=== PATIENT | female | born 1965 | race Caucasian/White ===

== ENCOUNTER → 2018-01-08 20:04 | Outpatient (CLI) | payer OTHER, SELFPAY ==
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
== END ==
PROVIDERS: PCP Nurse Practitioner Family; Visit Provider Nurse Practitioner Family
DX: M54.05 Panniculitis affecting regions of neck and back, thoracolumbar region (principal)
CPT/HCPCS: 72072; 72100

== ENCOUNTER → 2019-01-24 17:47 | Outpatient (CLI) | payer OTHER, SELFPAY | PROVIDERS: Visit Provider Podiatrist | DX: E11.8 Type 2 diabetes mellitus with unspecified complications (principal); B35.1 Tinea unguium | CPT/HCPCS: 87220 ==

== ENCOUNTER → 2019-09-26 10:28 | Outpatient (CLI) | payer OTHER, SELFPAY ==
--- NOTE | 2019-09-26 14:35 | MM_ITS ---
PROCEDURE: MM DIG SCREENING MAMM BI W/CAD DIGITAL BREAST TOMOSYNTHESIS INCLUDED Patient Age:54Y CLINICAL INDICATION: SCREENING the No hormones, no new complaints. Noncontributory family history. COMPARISON: MM MOBILE MAMMO DIGITAL SCREEN W CAD SAAD from 03/11/2017 mobile unit from [facility]; however appear to be a corrupted file on the submitted digital images particular in the left breast thus images do not load appropriately. Left breast extremely distorted and of very limited value for comparison TECHNIQUE: Standard CC and MLO images were obtained. R2 CAD reviewed. Bilateral digital breast tomosynthesis included. FINDINGS: minimal residual fibroglandular elements with moderate fatty replacement bilaterally. Right breast: Stable. No new areas of significant concern.. Follow-up 1 year Areas of minimal density seen today were evident on prior studies . For example area of overlapping fibroglandular elements at 12 o'clock of with similar area on previous study.. Left breast: Unfortunately the submitted outside left breast images appears to be more corrupted file. Thus the outside left mammogram images are quite distorted and of little value for comparison.. However we see no prominent or suspicious areas of concern left breast. Follow-up 1 year adequate Bilateral follow-up 1 year recommended and would be encouraged to better establish in confirm baseline since prior studies provide distorted/limited comparison. Thank you IMPRESSION: No suspicious findings No new areas of significant concern either breast Bilateral follow-up 1 year recommended-and would be encouraged, emphasized such to better confirm baseline/and stability (Note: Unfortunately outside digital images submitted for comparison have corrupted file and thus limited usefulness for comparison particularly at more distorted prior left breast images) BI-RAD Category: 2 Benign Finding(s) FOLLOW-UP: 1YR 1 Year Follow-up (A letter has been sent to the patient regarding results of the study.) Dictated by: Ever Pierce MD 10/15/2019 15:11 Electronically signed by Ever Peirce MD in [place] 10/15/2019 15:11
== END ==
PROVIDERS: PCP Nurse Practitioner Family; Visit Provider Nurse Practitioner Family
DX: M17.12 Unilateral primary osteoarthritis, left knee (principal)
CPT/HCPCS: 77063; 77067

== ENCOUNTER 2021-03-28 17:50 | Emergency (ER) | payer OTHER, SELFPAY ==
[2021-03-28 17:51] VITALS: BP 127/81; PULSE 103; RESP 16; TEMP 36.6; O2SAT 97; BMI 31.1
--- NOTE | 2021-03-28 18:08 | CT_ITS ---
PROCEDURE INFORMATION: Exam: CT Head Without Contrast Exam date and time: 03/28/2021 6:08 PM Age: 55 years old Clinical indication: Injury or trauma; Fall; Bleeding/hemorrhage and blunt trauma (contusions or hematomas); Consciousness not specified; Additional info: Fall head injury TECHNIQUE: Imaging protocol: Computed tomography of the head without contrast. Radiation optimization: All CT scans at this facility use at least one of these dose optimization techniques: automated exposure control; mA and/or kV adjustment per patient size (includes targeted exams where dose is matched to clinical indication); or iterative reconstruction. COMPARISON: No relevant prior studies available. FINDINGS: Brain: Normal. No hemorrhage. Unremarkable white matter. No mass effect. Cerebral ventricles: No ventriculomegaly. Paranasal sinuses: Visualized sinuses are unremarkable. No fluid levels. Mastoid air cells: Visualized mastoid air cells are well aerated. Bones/joints: Mildly comminuted nasal fracture. Please see concurrent CT face for other findings related to the bones. Soft tissues: Small left frontal scalp hematoma. IMPRESSION: No acute intracranial pathology
--- NOTE | 2021-03-28 18:09 | CT_ITS ---
PROCEDURE INFORMATION: Exam: CT Cervical Spine Without Contrast Exam date and time: 03/28/2021 6:09 PM Age: 55 years old Clinical indication: Injury or trauma; Fall; Blunt trauma TECHNIQUE: Imaging protocol: Computed tomography images of the cervical spine without contrast. Radiation optimization: All CT scans at this facility use at least one of these dose optimization techniques: automated exposure control; mA and/or kV adjustment per patient size (includes targeted exams where dose is matched to clinical indication); or iterative reconstruction. COMPARISON: CT FACIAL BONES WO CON 03/28/2021 6:44 PM FINDINGS: Bones/joints: No acute fracture. Normal alignment. Discs/Spinal canal/Neural foramina: Mild multilevel degenerative changes. No severe spinal canal stenosis. Lungs: Lung apices are normal. Soft tissues: Please see concurrent CT face for findings in the face. IMPRESSION: No evidence of C-spine fracture
--- NOTE | 2021-03-28 18:09 | CT_ITS ---
PROCEDURE INFORMATION: Exam: CT Maxillofacial Without Contrast Exam date and time: 03/28/2021 6:09 PM Age: 55 years old Clinical indication: Injury or trauma; Fall; Blunt trauma (contusions or hematomas); Nose; Additional info: Fall facial injury TECHNIQUE: Imaging protocol: Computed tomography images of the face without contrast. Radiation optimization: All CT scans at this facility use at least one of these dose optimization techniques: automated exposure control; mA and/or kV adjustment per patient size (includes targeted exams where dose is matched to clinical indication); or iterative reconstruction. COMPARISON: CT HEAD/BRAIN WO CON 03/28/2021 6:41 PM FINDINGS: Orbital cavity: Orbits are normal. Globes are unremarkable. Bones/joints: Approximately 8 mm of rightward deviation of the nasal septum is seen. This is favored to be chronic. There is a mildly comminuted and mildly displaced nasal fracture with overall leftward deviation. Paranasal sinuses: Normal. No air-fluid levels. Soft tissues: Soft tissue trauma seen in the left frontal lobe and over the nose. Dental: Dental caries noted. Some periapical lucencies seen as well. IMPRESSION: Nasal fracture as above
--- NOTE | 2021-03-28 19:16 | HMH.EDGENADL ---
ED Disposition Clinical Impression: Nasal fracture Qualifiers: Encounter type: initial encounter Fracture type: closed Qualified Code(s): S02.2XXA - Fracture of nasal bones, initial encounter for closed fracture Nasal abrasion Qualifiers: Encounter type: initial encounter Qualified Code(s): S00.31XA - Abrasion of nose, initial encounter Nasal laceration Qualifiers: Encounter type: initial encounter Qualified Code(s): S01.21XA - Laceration without foreign body of nose, initial encounter Disposition: Home, Self-Care Condition on Discharge: Fair Instructions: DI for Nose Fracture, DI for Laceration Repair-Skin Glue, DI for Abrasion Additional Instructions: Ice 20 minutes 4-5 times a day to nose. Keep head elevated on several pillows at night for 3 days. Tylenol 3/[place] as needed for pain. Follow-up with ears nose and throat, Dr. Kelly, call tomorrow to make appointment. Prescriptions: Hydrocod/Acet 5/325 mg [[place] 5/325mg tablet] 1 tab PO Q6HP PRN #10 tab PRN Reason: Pain Transmission Status: Sent to [facility] Referrals: Radha Medina [Primary Care Provider] - Roger Kelly MD [Physician] - (ENT) - Critical Care Critical Care Time: No Attestation: On 03/28/21, the high probability of a clinically significant, sudden or life threatening deterioration of the following system(s) required my full and direct attention, intervention and personal management. The time I documented below is in addition to time spent performing reported procedures but includes the following listed in this critical care notation. Medical Decision Making - Junior Inquiry Pt receiving controlled substance: Yes Junior was queried for this patient: Yes Risks and benefits of using a controlled substance: were discussed with pt by me Vital Signs: 03/28/21 17:51 03/28/21 20:15 Temperature 98 F 97 F L Temperature Source Oral Oral Pulse Rate 88 Pulse Rate [Radial] 103 H Respiratory Rate 16 16 Blood Pressure 127/81 Blood Pressure [Right Arm] 127/81 Blood Pressure Mean [Right Arm] 96 Blood Pressure Position [Right Arm] Sitting 02 Sat by Pulse Oximetry 97 Oxygen Delivery Method Room Air Room Air Orders (Tests/Meds): ED MEDICATIONS Discontinued Medications Generic Name Dose Route Start Last Admin Trade Name Freq PRN Reason Stop Dose Admin Acetaminophen/Codeine Phosphate 1 mohinder 03/28/21 19:50 03/28/21 20:00 Acetaminophen 300mg W/Codeine 30mg Take Home Pack (6) PO 03/28/21 19:51 1 mohinder ONCE ONE Administration Tetanus/Reduced Diphtheria/Acell Pertussis 0.5 ml 03/28/21 19:55 03/28/21 20:00 Tet/Diphth/Pert-Adult 0.5ml Syringe IM 03/28/21 19:56 0.5 ml .ONCE ONE Administration - CT Data CT Scan: Head, C-Spine, Other (facial) Time Received: 19:[address] Reviewed: Yes: I have viewed the radiologist's interpretation Findings Narrative: PROCEDURE INFORMATION: Exam: CT Cervical Spine Without Contrast Exam date and time: 03/28/2021 6:09 PM Age: 55 years old Clinical indication: Injury or trauma; Fall; Blunt trauma TECHNIQUE: Imaging protocol: Computed tomography images of the cervical spine without contrast. Radiation optimization: All CT scans at this facility use at least one of these dose optimization techniques: automated exposure control; mA and/or kV adjustment per patient size (includes targeted exams where dose is matched to clinical indication); or iterative reconstruction. COMPARISON: CT FACIAL BONES WO CON 03/28/2021 6:44 PM FINDINGS: Bones/joints: No acute fracture. Normal alignment. Discs/Spinal canal/Neural foramina: Mild multilevel degenerative changes. No severe spinal canal stenosis. Lungs: Lung apices are normal. Soft tissues: Please see concurrent CT face for findings in the face. IMPRESSION: No evidence of C-spine fracture EDURE INFOR
[2021-03-28 20:15] VITALS: BP 127/81; PULSE 88; RESP 16; TEMP 36.1; O2SAT 98
== END 2021-03-28 20:15 | disposition home or self-care (01) ==
PROVIDERS: Emergency Provider Emergency Medicine; PCP Nurse Practitioner Family
DX: S02.2XXA Fracture of nasal bones, initial encounter for closed fracture (principal); S00.31XA Abrasion of nose, initial encounter; S01.21XA Laceration without foreign body of nose, initial encounter; Z23 Encounter for immunization; W18.00XA Striking against unspecified object with subsequent fall, initial encounter; Y92.019 Unspecified place in single-family (private) house as the place of occurrence of the external cause; I10 Essential (primary) hypertension; E11.9 Type 2 diabetes mellitus without complications; F17.210 Nicotine dependence, cigarettes, uncomplicated
CPT/HCPCS: 70450; 70486; 72125; 90715; 99282

== ENCOUNTER 2023-11-28 14:16 | Outpatient (CLI) | payer OTHER, SELFPAY ==
--- NOTE | 2023-11-28 14:19 | CT_ITS ---
FINAL REPORT TECHNIQUE: Thin section axial images were obtained from the lung apices to the upper abdomen by computed tomography. Reformatted images were obtained and reviewed. This study was performed with techniques to keep radiation doses al low as reasonably achievable (ALARA). Individualized dose reduction techniques using automated exposure control or adjustment of mA and/or kV according to the patient's size were employed. CLINICAL HISTORY: SCREENING 1.5 ppd x15 years COMPARISON: None FINDINGS: CHEST CT LOW DOSE: 58-year-old female, current smoker, 40-dukw-cqqs history. CTDI vol (mGy): 2.9 DLP (mGy-cm): 96.38 There is no axillary adenopathy. There is no mediastinal or hilar mass or adenopathy. The heart is normal in size. There is no pericardial or pleural effusion. There is mild scarring in the lung bases. Lung window images demonstrate a 6 mm nodule in the left upper lobe, best seen on image #42 of series 4.. Limited images of the upper abdomen are unremarkable. IMPRESSION: Lung-RADS category 3. Recommend 6 month follow up low dose chest CT. Reviewed, Interpreted and Dictated by Geoffrey Sanchez MD Transcribed by Olga Lopez Authenticated and [facility]
== END 2023-11-28 23:59 | disposition home or self-care (01) ==
LOC: RAD 14:16
PROVIDERS: PCP Nurse Practitioner Family; Visit Provider Nurse Practitioner Family
DX: Z12.2 Encounter for screening for malignant neoplasm of respiratory organs (principal)
CPT/HCPCS: 71271

== ENCOUNTER 2024-06-03 13:15 | Outpatient (CLI) | payer OTHER, SELFPAY ==
--- NOTE | 2024-06-03 13:23 | CT_ITS ---
FINAL REPORT TECHNIQUE: Thin section axial images were obtained from the lung apices through the upper abdomen without contrast. Coronal and sagittal reconstructed images were obtained and reviewed. This study was performed with techniques to keep radiation doses as low as reasonably achievable (ALARA). Individualized dose reduction techniques using automated exposure control or adjustment of mA and/or kV according to the patient's size were employed. CLINICAL HISTORY: SOLITARY PULMONARY NODULE COMPARISON: 11/28/2023 FINDINGS: CT CHEST WITHOUT CONTRAST There is an oval groundglass nodule in the left upper lobe measuring 6 x 4 mm seen on image 45 of series 2. There is mild dependent atelectasis. There is a 2 mm peripheral nodule in the right middle lung seen on image 48 of series 2, which is stable. No pleural or pericardial effusion is seen . No adenopathy or mass lesion is present . IMPRESSION: Stable lung nodules, favor benign. Given the interval stability, recommend resumption of low-dose CT screening in 6 months. Reviewed, Interpreted and Dictated by Leticia Chow MD Transcribed by Rani Wharton Authenticated and [facility]
== END 2024-06-03 23:59 | disposition home or self-care (01) ==
LOC: RAD 13:16
PROVIDERS: PCP Nurse Practitioner Family; Visit Provider Nurse Practitioner Family
DX: R91.1 Solitary pulmonary nodule (principal)
CPT/HCPCS: 71250

== ENCOUNTER 2025-01-07 09:36 | Outpatient (CLI) | payer OTHER, SELFPAY ==
[2025-01-07 20:26] LABS: Hematocrit 44.4 % (37.0-47.0); Hemoglobin 14.8 g/dL (12.2-16.2); Immature Granulocytes % 0.6 %; Mean Corpuscular HGB Conc 33.3 g/dL (31.8-35.4); Mean Corpuscular Hemoglobin 29.5 pg (27.0-31.2); Mean Corpuscular Volume 88.6 fl (81-99); Nucleated Red Blood Cells % 0 %; Platelet Count 356 K/mm3 (142-424); Red Blood Count 5.01 M/mm3 (4.20-5.40); Red Cell Distribution Width-SD 42.0 fL; White Blood Count 5.4 K/mm3 (4.8-10.8)
[2025-01-07 20:57] LABS: Albumin Level 4.5 g/dl (3.5-5.0); Chloride 97 mmol/L (98-107); Potassium 4.8 mmoL/L (3.5-5.1); Sodium 138 mmol/L (136-145)
[2025-01-07 21:00] LABS: Alanine Aminotransferase 43 U/L (12-78); Albumin/Globulin Ratio 1.4 (1.1-1.8); Alkaline Phosphatase 75 U/L (38-126); Anion Gap 17.8 mEq/L (5-15); Aspartate Amino Transferase 38 U/L (14-36); Bilirubin,Total 1.0 mg/dl (0.2-1.3); Calcium 10.2 mg/dl (8.4-10.2); Carbon Dioxide 28 mmol/L (22.0-30.0); Cholesterol 205 mg/dl (140-200); Globulin 3.3 g/dL (1.3-3.2); Glucose 148 mg/dl (74-100); HDL Cholesterol 44 mg/dl (40-60); Total Protein,Serum 7.8 g/dl (6.3-8.2); Triglycerides 143 mg/dl (30-150)
[2025-01-07 21:20] LABS: Blood Urea Nitrogen 16 mg/dl (7-17); Creatinine,Serum 0.60 mg/dl (0.52-1.04); Estimated Glomerular Filt Rate 103 ml/min (>60); GFR (African American) 124 ML/MIN (>60)
[2025-01-07 21:30] LABS: Thyroid Stimulating Hormone 1.90 uIU/mL (0.465-4.68)
[2025-01-07 21:47] LABS: Hepatitis C Ab Qual. W/ RFX NEGATIVE (Negative)
[2025-01-07 22:30] LABS: Hemoglobin A1C 7.2 % (4.0-6.0)
--- OUTSIDE RECORDS SUMMARY | 2025-01-08 08:52 | XMS_ITS | Clinical Summary ---
Author Organization [facility] Address [address] [place] [address] Phone Care Team Providers Care Kaiawhina Kohanga Reo Name Role Phone Unavailable Primary Care Provider Unavailabl e Social History Tobacco Use Types Packs/Day Years Used Date Smoking Tobacco: Never Assessed Comments No Sex and Gender Information Value Date Recorded Sex Assigned at Not on file Legal Sex Female 9:07 AM EST Gender Identity Not on file Sexual Orientation Not on file Obstetrics History Para Term AB IAB SAB Ectopic Multiple Livin g Live Births 3 Plan of Treatment Health Maintenance Due Date Last Done Comments Annual Wellness Exam 1969 Hepatitis B Vaccine (1 of 3 - 19+ 3-dose series) 1985 Cervical Cancer Screening 1987 Pap Smear 1987 HPV/Pap Cotest 1996 Cologuard 2011 Colon Cancer Screening 2011 Colonoscopy 2011 FIT 2011 Sigmoidoscopy 2011 Virtual Colonography 2011 Pneumococcal Vaccine 50+ (1 of 1 - PCV) 2016 Zoster (1 of 2) 2016 COVID-19 Vaccine (3 - 2024-2 6 season) 2024 01/29/2021, 01/05/2021 Influenza Vaccine (#1) 2024 Breast Cancer Screening 05/13/2026 05/13/19 25, 05/19/2023, 03/11/2017 DTaP/TDaP/Td (2 - Td or Tdap) 03/28/2031 03/28/2021 Meningococcal B Vaccine Aged Out No l onger eligible based on patient's age to complete this topic Procedures Procedure Name Priority Date/Time Associated Diagnosis Comments MM MAMMO DIGITAL ANGELLA SCREEN BILAT Routine 05/13/2024 9:52 AM EST Encounter for screening mammogram for malignant neoplasm of breast from Last 3 Months or Most Recently Relevant to Health Maintenance Results * MM MAMMO DIGITAL ANGELLA SCREEN BILAT (05/13/2024 9:52 AM EST) Anatomical Region Laterality Modality Breast Bilateral Mammography 05/13/2024 9:52 AM EST Impressions 05/15/2024 8:58 AM EST Negative ([id number]) RECOMMENDATION: Routine Screening Mammogram in 1 Year Bilateral No additional recommendation No additional laterality COMMENTS: Narrative 05/15/2024 8:58 AM EST EXAM: MM MAMMO DIGITAL ANGELLA SCREEN BILAT EXAM DATE: 05/13/2024 9:52 AM INDICATION: Z12.31-Encounter for screening mammogram for malignant neoplasm of [id number] COMPARISON STUDIES: Compared with prior studies the most recent being 05/19/2023 MM MAMMO DIGITAL ANGELLA SCREEN BILAT at [facility] 03/11/2017. TISSUE DENSITY: There are scattered areas of fibroglandular density. FINDINGS: No mammographic evidence of malignancy. Procedure Note Ranjan Jane DO - 05/15/2024 EXAM: MM MAMMO DIGITAL ANGELLA SCREEN BILAT EXAM DATE: 05/13/2024 9:52 AM INDICATION: Z12.31-Encounter for screening mammogram for malignantneoplasm of [id number] COMPARISON STUDIES: Compared with prior studies the most recent being 05/19/2023 MM MAMMO DIGITAL ANGELLA SCREEN BILAT at [facility] 03/11/2017. TISSUE DENSITY: There are scattered areas of fibroglandular density. FINDINGS: No mammographic evidence of malignancy. IMPRESSION: Negative ([id number]) RECOMMENDATION: Routine Screening Mammogram in 1 Year Bilateral No additional recommendation No additional laterality COMMENTS: Radha Medina APRN IMG MAMMOGRAPHY ORDERABLES Fin al Result from Last 3 Months or Most Recently Relevant to Health Maintenance Insurance [employer] POS
[2025-01-09 05:19] LABS: Hepatitis B Surface Antigen Negative (Negative)
== END 2025-01-07 23:59 | disposition home or self-care (01) ==
LOC: LAB.DROPOF 01-08 08:50
PROVIDERS: PCP Family Medicine; Visit Provider Family Medicine
DX: E11.9 Type 2 diabetes mellitus without complications (principal); Z11.59 Encounter for screening for other viral diseases; Z11.4 Encounter for screening for human immunodeficiency virus [HIV]
CPT/HCPCS: 80053; 80061; 83036; 84443; 85025; 86803; 87340; 87389